=== PATIENT | female | born 1955 | race Caucasian/White ===

== ENCOUNTER 2020-05-09 01:57 | Day surgery (SDC) | payer BC, SELFPAY ==
--- NOTE | 2020-05-09 06:05 | WPDHPUPDATE1 ---
History and Physical Update Update Date/Time: 05/09/20 06:05 History and Physical has been reviewed, including an updated exam of the patient. There are NO changes in the patient's condition. Risks, benefits, and alternatives have been discussed and questions answered. Patient agrees to proceed with procedure.
[2020-05-09] MEDS: LACTATED RINGERS 1,000 ML 30 ML IV CONT (10:30)
--- NOTE | 2020-05-09 11:04 | WPDANESEPPF ---
Anes - Initial Pre Proc Eval Procedure: Operation Date: 05/09/20 12:00 Proposed Procedures p Cystoscopy - Alvino Sheikh MD Date/Time: 05/09/20 11:04 Surgeon: Alvino Sheikh MD Pre Op Diagnosis: Recurrent UTI Patient Data Age: 64 Gender: F Height: Weight: 90.72 kg Allergies Allergy/AdvReac Type Severity Reaction Status Date / Time erythromycin base Allergy Severe itching, Verified 03/15/17 10:14 rash estrogens, conjugated Allergy Severe swelling Verified 03/15/17 10:16 [Premarin] acetaminophen [Percocet] Allergy Intermediate chest Verified 03/15/17 10:16 pain, itching, vomiting cephalexin [Keflex] Allergy Intermediate itching, Verified 03/15/17 10:24 rash ciprofloxacin [Cipro] Allergy Intermediate Verified 03/15/17 10:19 clindamycin Allergy Intermediate Verified 03/15/17 10:24 codeine Allergy Intermediate headache Verified 03/15/17 10:19 cyclobenzaprine Allergy Intermediate chest pain Verified 03/15/17 10:20 doxycycline Allergy Intermediate rash Verified 03/15/17 10:19 hydroxyzine [Vistaril] Allergy Intermediate rash Verified 03/15/17 10:21 ibuprofen Allergy Intermediate vomiting Verified 03/15/17 10:25 ketorolac [Toradol] Allergy Intermediate itching Verified 03/15/17 10:15 lorazepam Allergy Intermediate Verified 03/15/17 10:20 ofloxacin [Floxin] Allergy Intermediate itching, Verified 03/15/17 10:17 rash oxycodone [Percocet] Allergy Intermediate chest Verified 03/15/17 10:16 pain, itching, vomiting Penicillins Allergy Intermediate chest Verified 03/15/17 10:18 pain, shortness of breath, swelling polyethylene glycol Allergy Intermediate rash Verified 03/15/17 10:23 [Golytely] polyethylene glycol 3350 Allergy Intermediate rash Verified 03/15/17 10:23 [Golytely] potassium chloride [Golytely] Allergy Intermediate rash Verified 03/15/17 10:23 sodium [Golytely] Allergy Intermediate rash Verified 03/15/17 10:23 sodium bicarbonate [Golytely] Allergy Intermediate rash Verified 03/15/17 10:23 sodium chloride [Golytely] Allergy Intermediate rash Verified 03/15/17 10:23 sodium sulfate [Golytely] Allergy Intermediate rash Verified 03/15/17 10:23 sulfamethoxazole [Septra] Allergy Intermediate Verified 03/15/17 10:19 tetracycline Allergy Intermediate itching, Verified 03/15/17 10:17 rash tramadol Allergy Intermediate itching Verified 03/15/17 10:22 trimethoprim [Septra] Allergy Intermediate Verified 03/15/17 10:19 morphine [MS Contin] Allergy Mild itching, Verified 03/15/17 10:21 rash Roxanol Allergy Intermediate itching Uncoded 03/15/17 10:21 Home Medications Medication Instructions Recorded Confirmed Type hydrocodone-acetaminophen [[place]] 5 - 325 tablet PO PRN 05/09/20 05/09/20 History imipramine HCl 50 mg PO DAILY 05/09/20 05/09/20 History omeprazole 40 mg PO DAILY 05/09/20 05/09/20 History pentosan polysulfate sodium 100 mg PO DAILY 05/09/20 05/09/20 History [[place]] prednisone 20 mg PO DAILY 05/09/20 05/09/20 History Patient hx anesthesia problems: none Family hx anesthesia problems: none PMFSH Past Medical History Medical History (Updated 05/09/20 @ 11:04 by Randall Hi DO) Anxiety Chronic, continuous use of opioids 5 norcos 10/325 per day Depression GERD (gastroesophageal reflux disease) TMJ (temporomandibular joint disorder) Surgical History Surgical History (Updated 05/06/20 @ 13:11 by Randall Hi DO) History of hysterectomy Family History Family History (Updated 05/20/17 @ 10:49 by DOCTOR UNKNOWN) Sibling Patient's sister is in good health Acute myocardial infarction Father Acute myocardial infarction Mother Cerebrovascular accident Social History Social History Smoking status: Never smoker Alcohol intake: never Gender identity (if verbalized by the patient): Female Anes - Eval Final PreProcedure Day of Procedure 05/09/20 1
[2020-05-09 11:10] VITALS: BMI 38.2
[2020-05-09 11:11] VITALS: BP 131/86; PULSE 77; RESP 18; TEMP 36.2; O2SAT 100
[2020-05-09] MEDS: LIDOCAINE HCL 2% GEL UROJET 10 ML PKG MUCOUS MEM (11:18)
--- NOTE | 2020-05-09 11:29 | P.OP_ITS ---
Procedure Note - Detailed Date of procedure: 05/09/20 Pre-op diagnosis: Recurrent UTI Post-op diagnosis: same Procedure performed: Cystoscopy Examination under anesthesia Description of procedure: She was correctly identified and informed consent is obtained. She is brought to the operating room. She was given mac anesthesia. Placed in a dorsal thigh position. Pressure points were padded. A time-out performed. I performed cystoscopy. The bladder was systematically examined. There was no tumors, stones, trabeculations, abnormal red patches, or foreign bodies. Ureteral orifices were normal. Urethra was normal as well. I then p erformed an exam under anesthesia. She had no significant prolapse. She had atrophic changes. She had a foreshortened vagina. There is no urethral diverticulum or other urethral abnormalities. She was awakened and transferred to the PACU in stable condition. Anesthesia: MAC Surgeon: Alvino Sheikh MD Estimated blood loss (mL): 0 Drains: No Packing: No Pathology: none sent Complications: No immediate complications Condition: stable Disposition: PACU
[2020-05-09 11:30] VITALS: BP 110/58; PULSE 75; RESP 14; O2SAT 98
[2020-05-09 12:00] VITALS: BP 118/57; PULSE 75; RESP 14
[2020-05-09 12:20] VITALS: BP 124/60; PULSE 74; RESP 14
== END 2020-05-09 12:25 | disposition home or self-care (01) ==
PROVIDERS: Visit Provider Urology
PROC: 0TJB8ZZ Inspection of Bladder, Via Natural or Artificial Opening Endoscopic (ICD-10-PCS; CPT 52000; principal; 2020-05-09 12:00)
DX: N39.0 Urinary tract infection, site not specified (principal); N95.2 Postmenopausal atrophic vaginitis; K21.9 Gastro-esophageal reflux disease without esophagitis; F32.9 Major depressive disorder, single episode, unspecified; F41.9 Anxiety disorder, unspecified; Z79.899 Other long term (current) drug therapy
CPT/HCPCS: 52000; A9270; J2250; J2405; J2704; J3010; J7120

== ENCOUNTER 2020-08-08 06:55 | Outpatient (CLI) | payer BC, SELFPAY ==
--- NOTE | ~2020-08-08 | MM_ITS ---
EXAMINATION: MM screening judy BI w kaitlyn HISTORY: Screening mammogram TECHNIQUE: Craniocaudal and mediolateral oblique 3-D tomosynthesis images were obtained and synthetic 2-D images were generated. CAD analysis was submitted and interpreted. COMPARISON: 04/08/2014 bilateral digital screening mammogram BREAST PARENCHYMAL COMPOSITION: The breasts are almost entirely fatty. FINDINGS: There is no evidence of suspicious mass, calcification, or architectural distortion to sugg est malignancy in either breast. There has been no suspicious interval change. IMPRESSION: 1. No mammographic evidence of malignancy. 2. Recommend routine screening mammography in one year. BI-RADS Category 1: Negative Reviewed, dictated and finalized at location A.
--- NOTE | ~2020-08-08 | DEXA_ITS ---
BMD(1) Young-Adult(2) Age-Matched(3) Region (g/cm2) T-score Z-score WHO Classification L1 1.212 0.6 1.2 Normal L2 1.150 -0.5 0.1 Normal L3 1.152 -0.5 0.1 Normal L4 1.248 0.2 0.8 Normal L1-L4 1.193 0.0 0.6 Normal Trend: L1-L4 Change vs Change vs Measured Age BMD(1) Baseline Previous Date (years) (g/cm2) (%) (%) 08/08/2020 [age] 1[age]193 baseline - 1 - Statistically 68% of repeat scans fall within 1SD (+- 0.010 g/cm2 for AP Spine L1-L4) 2 - [place] (Combined NHANES (ages 20-30) / [employer] (ages 20-40)) AP Spine Reference Population (v112) 3 - Matched for Age, Weight (females 25-100 kg), Ethnic 11 - World Health Organization - Definition of Osteoporosis and Osteopenia for Women: Normal = T-score at or above -1.0 SD; Osteopenia = T-score between -1.0 and -2.5 SD; Osteoporosis = T-score at or below -2.5 SD; (WHO definitions only apply when a young healthy Women reference database is used to determine T-scores.) Printed: 08/08/2020 7:45:37 AM (13.60)76:3.00:22.22:27.0 0.00:10.80 0.60x1.05 27.4:%Fat=44.6% 0.00:0.00 0.00:0.00 Verify bone is centered and there is sufficient tissue next to bone. Filename: [id number] Scan Mode: Thick;OneScan 83.0 uGy Farseer [id number] BMD(1) Young-Adult(2,7) Age-Matched(3) Region (g/cm2) T-score Z-score WHO Classification Neck Left 0.886 -1.1 -0.3 Osteopenia Right 0.970 -0.5 0.3 Normal Mean 0.928 -0.8 0.0 Normal Difference 0.084 0.6 0.6 - Total Left 1.003 0.0 0.4 Normal Right 1.086 0.6 1.1 Normal Mean 1.044 0.3 0.8 Normal Difference 0.083 0.7 0.7 - Hip [place] Length Comparison (mm) (Right = 111.4 mm) (Mean = 107.1 mm) (Left = 111.6 mm) Trend: Total Mean Change vs Change vs Measured Age BMD(1) Baseline Previous Date (years) (g/cm2) (%) (%) 08/08/2020 65.0 1.044 baseline - 1 - Statistically 68% of repeat scans fall within 1SD (+- 0.010 g/cm2 for DualFemur Total) 2 - [place] (Combined NHANES (ages 20-30) / [employer] (ages 20-40)) Femur Reference Population (v112) 3 - Matched for Age, Weight (females 25-100 kg), Ethnic 7 - DualFemur Total T-score difference is 0.7. Asymmetry is Mild. 11 - World Health Organization - Definition of Osteoporosis and Osteopenia for Women: Normal = T-score at or above -1.0 SD; Osteopenia = T-score between -1.0 and -2.5 SD; Osteoporosis = T-score at or below -2.5 SD; (WHO definitions only apply when a young healthy Women reference database is used to determine T-scores.) Printed: 08/08/2020 7:45:38 AM (13.60); Filename: [id number]; Right Femur; 21.3:%Fat=33.9%; Neck Angle (deg)= 58; Scan Mode: Standard 37.0 uGy; Left Femur; 21.2:%Fat=39.0%; Neck Angle (deg)= 59; Scan Mode: Standard 37.0 uGy Farseer [id number] Dear Cherry Whitney, Ken patient Jenni Weeks completed a BMD test on 08/08/2020 using the Farseer DXA System (analysis version: 13.60) manufactured by [employer]. The following summarizes the results of our evaluation. PATIENT BIOGRAPHICAL: Name: Jenni Weeks Date: 1955 Height: 65.0 in. Gender:
[2020-08-08 08:03] LABS: Alanine Aminotransferase 29 U/L (14-59); Alkaline Phosphatase 98 U/L (46-116); Aspartate Amino Transferase 15 U/L (15-37); Bilirubin,Total 0.2 mg/dL (0.00-1.00); Cholesterol 338 mg/dL (0-200); HDL Direct 68 mg/dL (40-60); LDL Cholesterol Calculated 243 mg/dL (<130); Total Protein 6.8 g/dL (6.4-8.2); Triglycerides 137 mg/dL (0-150)
[2020-08-08 08:11] LABS: Bilirubin Direct < 0.1 mg/dL (0-0.2)
== END 2020-08-08 06:56 | disposition home or self-care (01) ==
LOC: CHSIMG 06:59
PROVIDERS: PCP Internal Medicine
DX: Z78.0 Asymptomatic menopausal state (principal); E78.5 Hyperlipidemia, unspecified; Z12.31 Encounter for screening mammogram for malignant neoplasm of breast
CPT/HCPCS: 36415; 77063; 77067; 77080; 80061; 80076